=== PATIENT | male | born 1975 | race Caucasian/White ===

== ENCOUNTER 2023-03-25 08:40 | Observation (INO) | payer BC ==
[~2023-03-25] VITALS: Ht 188 cm; Wt 114.8 kg
[2023-03-25] MEDS ORDERED: ONDANSETRON HCL INJ 2MG/ML 2ML 2 MG/ML VIAL IV PRN (09:00)
[2023-03-25] MEDS ORDERED: Morphine 4mg INJECTION 4 MG/ML INJ IV PRN (09:00)
[2023-03-25] MEDS ORDERED: ASPIRIN 81 MG CHEW TAB PO ONE ×2 (09:00)
[2023-03-25 09:06] LABS: BASOPHILS # (AUTO) 0.1 (0.0-0.1); BASOPHILS % 0.5 % (0.0-1.0); EOSINOPHILS # (AUTO) 0.1 (0.0-0.4); EOSINOPHILS % 1.2 % (0.0-6.0); HEMATOCRIT 48.7 % (38.2-49.6); LYMPHOCYTES # (AUTO) 2.6 (1.0-3.2); LYMPHOCYTES % 23.2 % (18.0-39.1); MEAN CORPUSCULAR HEMOGLOBIN 32.9 pg (28-32); MEAN CORPUSCULAR HGB CONC 34.9 g/dL (31-35); MEAN CORPUSCULAR VOLUME 94.4 fL (81-99); MONOCYTES # (AUTO) 0.7 (0.2-0.8); NEUTROPHILS # (AUTO) 7.6 (2.1-6.9); NEUTROPHILS % 68.5 % (38.7-80.0); PLATELET COUNT 267 x10e3/uL (140-360); RED BLOOD COUNT 5.16 x10e6/uL (4.3-5.7); RED CELL DISTRIBUTION WIDTH 11.9 % (11.7-14.4)
[2023-03-25 09:19] LABS: INR 0.89; PROTHROMBIN TIME 12.5 seconds (11.9-14.5)
[2023-03-25 09:31] LABS: ALBUMIN/GLOBULIN RATIO 1.1 (0.8-2.0); ANION GAP 13.5 mmol/L (8-16); CALCIUM 9.4 mg/dL (8.4-10.2); CREATININE, SERUM 0.89 mg/dL (0.72-1.25); POTASSIUM 4.5 mmol/L (3.5-5.1)
[2023-03-25 10:01] VITALS: PULSE 75; RESP 20; O2SAT 98
[2023-03-25] MEDS ORDERED: PROZAC20 MG PO (13:47)
[2023-03-25] MEDS ORDERED: SEROQUEL100 MG PO (13:47)
[2023-03-25] MEDS: METOPROLOL SUCCINATE 50 MG TAB XL PO SCH (14:25)
[2023-03-25] MEDS: ATORVASTATIN 40 MG TAB PO SCH (14:25)
[2023-03-25] MEDS: ENOXAPARIN SODIUM INJ 100 MG/ML SYR SC SCH (14:26)
[2023-03-25 14:44] VITALS: BP 149/112; PULSE 80; RESP 20; TEMP 97.5; O2SAT 100
[2023-03-25 14:50] VITALS: BP 149/112; PULSE 98; RESP 20; TEMP 97.5; O2SAT 95
[2023-03-25 16:00] VITALS: BP 163/119; PULSE 88; RESP 21; TEMP 97.5; O2SAT 98
[2023-03-25 19:40] VITALS: PULSE 77; RESP 18; O2SAT 97
[2023-03-25 21:00] VITALS: BP 163/119; PULSE 77; RESP 18; TEMP 97.5; O2SAT 97
[2023-03-25] MEDS: QUETIAPINE FUMARATE 100 MG TAB PO SCH (21:37)
[2023-03-26 05:51] LABS: BASOPHILS # (AUTO) 0.1 (0.0-0.1); BASOPHILS % 0.6 % (0.0-1.0); EOSINOPHILS # (AUTO) 0.2 (0.0-0.4); HEMATOCRIT 52.6 % (38.2-49.6); HEMOGLOBIN 17.3 g/dL (14.0-18.0); LYMPHOCYTES # (AUTO) 2.4 (1.0-3.2); LYMPHOCYTES % 26.9 % (18.0-39.1); MEAN CORPUSCULAR HEMOGLOBIN 31.8 pg (28-32); MEAN CORPUSCULAR HGB CONC 32.9 g/dL (31-35); MEAN CORPUSCULAR VOLUME 96.7 fL (81-99); MONOCYTES # (AUTO) 0.6 (0.2-0.8); MONOCYTES % 6.5 % (4.4-11.3); NEUTROPHILS # (AUTO) 5.6 (2.1-6.9); NEUTROPHILS % 63.2 % (38.7-80.0); PLATELET COUNT 261 x10e3/uL (140-360); RED BLOOD COUNT 5.44 x10e6/uL (4.3-5.7); RED CELL DISTRIBUTION WIDTH 11.7 % (11.7-14.4)
[2023-03-26 06:14] LABS: ANION GAP 12.5 mmol/L (8-16); CALCIUM 9.4 mg/dL (8.4-10.2); CREATININE, SERUM 0.96 mg/dL (0.72-1.25); POTASSIUM 4.5 mmol/L (3.5-5.1)
[2023-03-26 06:22] LABS: CHOL/HDL RATIO 7.1 (3.9-4.7); CHOLESTEROL 291 MD/DL (0-199); HDL CHOLESTEROL 41 MG/DL (40-60); TRIGLYCERIDES 491 MG/DL (0-149)
[2023-03-26] MEDS ORDERED: HYDRALAZINE HCL 20 MG/ML VIAL IV PRN (06:45)
[2023-03-26 06:46] LABS: THYROID STIMULATING HORMONE 1.516 uIU/mL (0.350-4.940)
[2023-03-26 06:47] LABS: CREATINE KINASE 63 IU/L (30-200)
[2023-03-26] MEDS: ENOXAPARIN SODIUM INJ 100 MG/ML SYR SC SCH ×2 (07:22→13:30)
[2023-03-26 08:29] VITALS: BP 162/115; PULSE 79; RESP 19; TEMP 98.3; O2SAT 97
[2023-03-26 08:30] VITALS: BP 162/115; PULSE 79; RESP 19; TEMP 98.5; O2SAT 97
[2023-03-26 10:06] LABS: AMPHETAMINES SCREEN,URINE NEGATIVE (NEGATIVE); BENZODIAZEPINES SCREEN,URINE NEGATIVE (NEGATIVE); PHENCYCLIDINE SCREEN,URINE NEGATIVE (NEGATIVE)
[2023-03-26] MEDS ORDERED: LOSARTAN POTASSIUM 25 MG TAB PO SCH (11:00)
[2023-03-26] MEDS ORDERED: REGADENOSON 0.4 MG/5 ML SYR IV ONE (12:41)
[2023-03-26] MEDS: FLUOXETINE HCL 20 MG CAP PO SCH (13:57)
[2023-03-26] MEDS: ATORVASTATIN 40 MG TAB PO SCH (13:57)
[2023-03-26] MEDS: ASPIRIN 81 MG CHEW TAB PO SCH (14:03)
[2023-03-26] MEDS: METOPROLOL SUCCINATE 50 MG TAB XL PO SCH (14:03)
[2023-03-26] MEDS ORDERED: METOPROLOL SUCCINATE 50 MG TAB XL PO ONE (15:45)
[2023-03-26] MEDS: TRIAMTERENE/HCTZ 37.5-25 MG TAB PO SCH (17:42)
[2023-03-26 20:00] VITALS: BP 138/122; PULSE 71; RESP 17; TEMP 98; O2SAT 100
[2023-03-26] MEDS ORDERED: EZETIMIBE 10 MG TAB PO SCH (21:00)
[2023-03-26] MEDS ORDERED: ATORVASTATIN 40 MG TAB PO SCH (21:00)
[2023-03-26] MEDS: LOSARTAN POTASSIUM 25 MG TAB PO SCH (21:19)
[2023-03-26] MEDS: QUETIAPINE FUMARATE 100 MG TAB PO SCH (21:19)
[2023-03-27] VITALS: BP 114/72; PULSE 84; RESP 20; TEMP 97.7; O2SAT 98
[2023-03-27 08:21] VITALS: BP 145/109; PULSE 88; RESP 16; TEMP 98.5; O2SAT 97
[2023-03-27 08:25] VITALS: BP 145/109; PULSE 88; RESP 16; TEMP 98.5; O2SAT 97
[2023-03-27] MEDS: FLUOXETINE HCL 20 MG CAP PO SCH (08:54)
[2023-03-27] MEDS: TRIAMTERENE/HCTZ 37.5-25 MG TAB PO SCH (08:55)
[2023-03-27] MEDS: ATORVASTATIN 40 MG TAB PO SCH (08:55)
[2023-03-27] MEDS: LOSARTAN POTASSIUM 25 MG TAB PO SCH (08:55)
[2023-03-27] MEDS: ASPIRIN 81 MG CHEW TAB PO SCH (08:56)
[2023-03-27] MEDS ORDERED: METOPROLOL SUCCINATE 50 MG TAB XL PO SCH (09:00)
[2023-03-27 12:15] VITALS: BP 144/103; PULSE 78; RESP 18; TEMP 97.7; O2SAT 96
[2023-03-27] MEDS ORDERED: ONDANSETRON HCL 4 MG ORAL DISINTEGRATING TAB PO PRN (15:00)
== END 2023-03-27 15:00 | disposition home or self-care (01) ==
LOC: ER 08:47 → ERHOLD 08:53 → MED/SURG3 12:41
PROVIDERS: ADMIT Family Medicine; ATTEND Family Medicine
DX: R07.9 Chest pain, unspecified (principal); E66.01 Morbid (severe) obesity due to excess calories; Z68.32 Body mass index [BMI] 32.0-32.9, adult; D75.1 Secondary polycythemia; I16.0 Hypertensive urgency; Z72.0 Tobacco use
CPT/HCPCS: 0223U; 36415 ×2; 71045; 78452; 80048; 80053; 80061; 80307; 82550 ×2; 83036; 83690; 83880; 84443; 84484 ×2; 85025 ×2; 85610; 93005; 93017; 93306; 94799; 99284; A9502; G0378 ×3; J0360; J1650 ×2; J2785